=== PATIENT | female | born 1990 | race Caucasian/White ===

== ENCOUNTER 2022-02-06 16:58 | Emergency (ER) | payer OTHER ==
[~2022-02-06] VITALS: Ht 165.1 cm; Wt 58.5 kg
[2022-02-06 20:44] LABS: HEMOGLOBIN 12.5 gm/dl (12.3-15.3); RED BLOOD COUNT 4.18 M/UL (4.00-5.10); WHITE BLOOD COUNT 10.3 K/UL (4.5-11.0)
[2022-02-06 21:10] LABS: BUN/CREATININE RATIO 10 (0-10)
[2022-02-06] MEDS ORDERED: IBUPROFEN600 MG PO (21:51)
== END 2022-02-06 22:10 | disposition home or self-care (01) ==
LOC: ER1 16:58
PROVIDERS: Physician Assistant
DX: N61.1 Abscess of the breast and nipple (principal); F17.200 Nicotine dependence, unspecified, uncomplicated
CPT/HCPCS: 10060; 80053; 85025; 87070; 87077; 87186; 87205; 99283

== ENCOUNTER 2022-02-08 20:37 | Emergency (ER) | payer OTHER ==
[~2022-02-08 20:37] MED LIST: IBUPROFEN600 MG PO
== END 2022-02-08 23:13 | disposition home or self-care (01) ==
LOC: ER1 20:37
DX: Z48.817 Encounter for surgical aftercare following surgery on the skin and subcutaneous tissue (principal); N61.1 Abscess of the breast and nipple; F17.200 Nicotine dependence, unspecified, uncomplicated
CPT/HCPCS: 99282